=== PATIENT | female | born 1990 | race African-American/Black ===

== ENCOUNTER 2024-05-08 22:01 | Emergency (ER) | payer SELFPAY ==
[2024-05-08 22:04] VITALS: BP 124/90; PULSE 82; RESP 16; TEMP 36.4; O2SAT 100
[2024-05-08 22:15] LABS: BEDSIDEPREGUCG Negative (Negative)
[2024-05-08 22:56] LABS: Add Urine Microscopic? YES; Appearance Urine Turbid (Clear); Bacteria Urine 4+ /hpf; Bilirubin Urine Negative (Negative); Blood Urine 2+ (Negative); Budding Yeast Urine Present /hpf; Color Urine Yellow (Yellow); Glucose Urine UA Negative (Negative); Ketones Urine 1+ mg/dL (Negative); Leukocyte Esterase Ur 3+ LEU/UL (Negative); Nitrate Urine Negative (Negative); Non Pathogenic Casts >20; Protein Urine 4+ mg/dL (Negative); RBC Urine 51-100 /hpf (0-2); Specific Grav Ur 1.015 (1.001-1.035); Squamous Epithelial Cell Urine Moderate /hpf (Few); WBC Urine >100 /hpf (0-3); pH Urine 7.5 (5.0-9.0)
[2024-05-09] MEDS: KETOROLAC 30 MG/ML VIAL (*BKC) 15 MG IM (00:30)
[2024-05-09] MEDS: CEPHALEXIN 500 MG CAPSULE PO (00:30)
[2024-05-09] MEDS: PHENAZOPYRIDINE HCL 100 MG TABLET 200 MG PO (00:30)
[2024-05-09] MEDS: HYDROcodone/acetaminophen (*CRX) 7.5-325 MG TABLET 1 TAB PO (00:30)
--- NOTE | 2024-05-09 01:02 | ED.FEMALEGU ---
HPI - Female Genitourinary General Chief complaint: Urogenital-Female Stated complaint: pelvic pain, decreased urination Time Seen by Provider: 05/08/24 23:27 History of Present Illness HPI Narrative: Patient is a 33-year-old female who presents the emergency department this evening complaining of dysuria and suprapubic pain for the past 3 days. Patient denies any chance of , denies any abnormal vaginal bleeding Or spotting, denies any concern for STDs. Patient admits that she is not taking anything for the pain. Denies any fevers or chills at home, any nausea, vomiting, or abdominal pain. Patient states that she has been going to the bathroom but feels as though no matter how much she feels she not fully emptying her bladder. No additional symptoms or concerns at this time. Related Data Allergies Allergy/AdvReac Type Severity Reaction Status Date / Time No Known Allergies Allergy Verified 05/08/24 22:02 Review of Systems Review of Systems: All systems are reviewed and are negative unless stated otherwise in the HPI. Exam Narrative: General: Alert, awake, afebrile, in no acute distress. HEENT: PERRL, no rhinorrhea, no post nasal drip, oropharynx clear. Neck: Trachea midline, no JVD, no lymphadenopathy. Cardiovascular: Regular rate and rhythm, no murmurs, rubs or gallops, no peripheral edema. Respiratory: Clear to auscultation bilaterally, no tachypnea, no wheezing, no rhonchi, no rubs, no respiratory distress. Abdomen: Soft, nontender, nondistended, no rebound, no guarding, no peritoneal signs. Musculoskeletal: No joint swelling or deformity, normal muscle tone. Skin: No rashes or petechia, no signs of infection. Psychiatric: Alert and oriented, normal behavior and judgment for situation. Neurological: Alert and oriented to person, place, and time. Follows all commands. No focal deficits, speech is clear and fluent. Course Vital Signs Vital signs: Vital Signs Temperature 97.6 F 05/08/24 22:04 Pulse Rate 82 05/08/24 22:04 Respiratory Rate 16 05/08/24 22:04 Blood Pressure 124/90 05/08/24 22:04 Pulse Oximetry 100 05/08/24 22:04 Oxygen Delivery Room Air 05/08/24 22:04 Temperature 97.6 F 05/08/24 22:04 Pulse Rate 82 05/08/24 22:04 Respiratory Rate 16 05/08/24 22:04 Blood Pressure 124/90 05/08/24 22:04 Pulse Oximetry 100 05/08/24 22:04 Oxygen Delivery Room Air 05/08/24 22:04 MDM - Female Genitourinary MDM Narrative Medical decision making narrative: The patient was evaluated by myself in the emergency department. History is obtained from patient who is an independent historian and physical exam was performed. External medical records were reviewed at this time. Urinalysis did reveal urinary tract infection. Patient was administered 15 mg of IM Toradol, oral Page 5-325 mg, cephalexin 500 mg and 200 mg of oral Pyridium. Differential diagnosis considerations include UTI, pyelonephritis, dehydration. Comorbidities impacting this visit include none. I have evaluated and discussed social determinants of health with the patient that could potentially impact subsequent diagnosis and treatment plans. On repeat assessment of the patient, reevaluation revealed that the patient is doing well and is in no acute distress. Patient symptoms have improved since she arrived to our emergency department. Repeat vital signs were all reviewed and noted to be stable. Differential diagnosis and treatment plan were discussed with the patient at bedside. Patient agrees with discussion and after shared medical decision making agrees with discharge. All questions were answered to the patient's satisfaction. Patient will follow up with her PCP in 3-5 days. Script for peridium and cephalexin were sent to patient's pharmacy to take as prescribed for her UTI.Patient was provided with strict return precautions and instructed to return to the emergency department if any new or worsening symptoms develop. The patient was discharged in stable condition. Lab Data Labs: Lab Results 05/08/24 05/08/24 Range/Units 22:11 22:13 Urine Color Yellow (Yellow) Urine Appearance Turbid H (Clear) Urine pH 7.5 (5.0-9.0) Ur Specific [place] 1.015 (1.001-1.035) Urine Protein 4+ H (Negative) mg/dL Urine Glucose (UA) Negative (Negative) mg/dL Urine Ketones 1+ H (Negative) mg/dL Ur Blood (Man) 2+ H (Negative) Urine Nitrate Negative (Negative) Urine Bilirubin Negative (Negative) Urine Urobilinogen 1.0 (<2.0) mg/dL Leukocyte Esterase Rfl 3+ H (Negative) CARLENE/UL Urine RBC 51-100 H (0-2) /hpf Urine WBC >100 H (0-3) /hpf Ur Squamous Epith Cells Moderate (Few) /hpf Urine Bacteria 4+ /hpf Urine Casts >20 Urine Yeast (Budding) Present H (None) /hpf POC Urine HCG, Qual Negative (Negative) Discharge Plan Discharge Clinical Impression: Urinary tract infection Patient Disposition: Home, Self-Care Condition: Improved Instructions: Antibiotic Form, Urinary Tract Infection in Women (ED) Additional Instructions: Please follow-up with your family doctor within the next 3-5 days. Take the prescribed antibiotic as instructed for UTI. Use the Pyridium as instructed for 2 days to help with your dysuria. Return to the emergency department if any new or worsening symptoms develop. Patient Language: Malay Prescriptions: New cephalexin 500 mg capsule 500 mg PO Q12H 7 Days Qty: 14 0RF phenazopyridine [Pyridium] 200 mg tablet 200 mg PO TID Qty: 5 0RF Follow-up/Referrals: PHYSICIAN NOT ON STAFF,NONSTAFF [Primary Care Provider] - Jamin Sánchez MD [Physician] - 3 Days Time of Disposition: 01:04
[2024-05-09 01:06] VITALS: BP 115/98; PULSE 79; RESP 14; O2SAT 98
== END 2024-05-09 01:21 | disposition home or self-care (01) ==
PROVIDERS: Emergency Provider Emergency Medicine
DX: N39.0 Urinary tract infection, site not specified (principal)
CPT/HCPCS: 81001; 81025; 87086; 96372; 99283; A9270; J1885

== ENCOUNTER 2025-03-21 12:44 | Outpatient (CLI) | payer OTHER, SELFPAY ==
--- NOTE | ~2025-03-21 | US_ITS ---
EXAM(S): OB ultrasound follow-up HISTORY: Growth COMPARISON: Studies dating back to September 21 FINDINGS: Number: Single. Heart rate: 128 bpm. presentation: cephalic. anatomy: No anatomic abnormalities are seen on the static images submitted. Amniotic fluid index: 12.0 cm. Placenta: Fundal. Exam is performed too late in the gestation to evaluate the anatomy. Biometry: BPD: 9.4 cm. HC: 33.6 cm. AC: 33.3 cm. FL: 7.3 cm. These measurements indicate interval appropriate growth. Estimated Weight: 3221 grams. This is at the 60.2%. The estimated gestational age according to the first available ultrasound should currently be 37 weeks 3 days. Growth ratios (normal range): HC/AC: 1.01 (1.08 - 1.27) FL/BPD: 77.43 (71.0 - 87.0) FL/AC: 21.86 (20-24) The cervical length is 5.5 cm. IMPRESSION: 1. Single, live intrauterine showing interval appropriate growth. 2. No gross anomaly demonstrated with limitations noted above. 3. Fundal placenta. 4. The amniotic fluid volume is normal. Reviewed, dictated and finalized at location A. [facility]
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
== END 2025-03-21 12:45 | disposition home or self-care (01) ==
PROVIDERS: PCP Family Medicine; Visit Provider Student in an Organized Health Care Education/Training Program
DX: Z34.90 Encounter for supervision of normal pregnancy, unspecified, unspecified trimester (principal); Z3A.00 Weeks of gestation of pregnancy not specified
CPT/HCPCS: 76816

== ENCOUNTER 2025-04-03 04:54 | Inpatient (IN) | payer OTHER, SELFPAY ==
[2025-04-03] VITALS (86 sets, daily range): BP systolic 79–137; BP diastolic 54–91; PULSE 70–134; RESP 11–18; TEMP 36.4–36.8; O2SAT 98–100; BMI 30.3
--- NOTE | 2025-04-03 05:32 | LDADM ---
This patient, Sergio Oneal, was admitted to Labor/Delivery/Recovery 107 on 04/03/25 at 04:54. Plans for labor, pain management and were discussed with patient. Patient/family oriented to hospital policies and general routines including ID bracelet, bed and alarms, visiting hours, pain management, procedures, bathroom and other care routines, personal items, smoking policy, room service/diet and guest tray routines, infant security routines, and visiting hours. Patient/Family are encouraged to report perceived risks to care and to ask questions if they do not understand what they are told or what they should do. See OBIX for further documentation.
[2025-04-03 06:00] LABS: Hematocrit 31.0 % (37.0-47.0); Hemoglobin 10.7 g/dL (12.0-15.0); Immature Granulocyte Percent A 0.9 % (0-0.5); Lymphocytes Absolute Auto 1.41 K/mm3 (0.9-3.2); Mean Corpuscular HGB Conc 34.5 g/dl (32-36); Mean Corpuscular Hemoglobin 28.8 pg (26-34); Mean Corpuscular Volume 83.3 fl (80-100); Nucleated Red Blood Cells Absolute Auto 0.000 K/mm3 (0.0-0.012); Nucleated Red Blood Cells Perc 0.0 % (0.0-0.2); Platelet Count Result 259 k/mm3 (150-375); Red Blood Count 3.72 M/mm3 (4.2-5.4); White Blood Count 8.8 K/mm3 (4.5-10.0)
[2025-04-03 06:30] LABS: Syphilis IgG/IgM Antibody Non-Reactive (Nonreactive)
--- NOTE | 2025-04-03 06:43 | P.PNAN_ITS ---
Anes - Eval Pre Procedure Procedure: Labor epidural Date/Time: 04/03/25 06:43 Surgeon: Prakash Preop Diagnosis: Abdominal pain with contractions Pre Op Diagnosis: IOL Patient Data Age: 34 Gender: F Height: 1.78 m Weight: 96 kg Last Vital Signs Pulse 76 04/03/25 06:31 BP 123/77 04/03/25 06:31 Allergies Allergy/AdvReac Type Severity Reaction Status Date / Time No Known Allergies Allergy Verified 04/03/25 05:34 Home Medications ?Medication ?Instructions ?Recorded ?Confirmed ?Type nitrofurantoin 100 mg PO DAILY #60 caps 04/03/25 Rx monohydrate/macrocrystals 100 mg capsule (Macrobid) Laboratory Tests 04/03/25 05:26 WBC 8.8 K/mm3 (4.5-10.0) RBC 3.72 L M/mm3 (4.2-5.4) Hgb 10.7 L g/dL (12.0-15.0) Hct 31.0 L % (37.0-47.0) MCV 83.3 fl (80-100) MCH 28.8 pg (26-34) MCHC 34.5 g/dl (32-36) RDW 14.0 % (11.5-14.5) Plt Count 259 k/mm3 (150-375) MPV 10.7 H fl (7.4-10.4) Immature Gran % (Auto) 0.9 H % (0-0.5) Neut % (Auto) 73.6 H % (45.5-73.1) Lymph % (Auto) 16.0 L % (18.3-44.2) [place] % (Auto) 7.0 % (2.6-8.5) Eos % (Auto) 2.2 % (0-4.4) Baso % (Auto) 0.3 % (0.2-1.2) Lymph # (Auto) 1.41 K/mm3 (0.9-3.2) [place] # (Auto) 0.6 K/mm3 (0.1-0.6) Eos # (Auto) 0.2 K/mm3 (0-0.3) Baso # (Auto) 0.0 K/mm3 (0.0-0.1) Abs Immat Gran (auto) 0.08 H K/mm3 (0.00-0.031) Absolute Neuts (auto) 6.5 K/mm3 (1.3-6.7) Absolute Nucleated RBC 0.000 K/mm3 (0.0-0.012) Nucleated RBC % 0.0 % (0.0-0.2) Syphilis IgG/IgM Ab Non-reactive (Nonreactive) Blood Type AB Positive Antibody Screen Negative : gestational age HCG: positive Patient hx anesthesia problems: none Family hx anesthesia problems: none Results Review: All pre-operative results and documents have been reviewed as part of the pre- operative evaluation. [facility] Past Medical History Medical History Overweight (BMI 25.0-29.9) Eczema and not yet delivered Exposure to sexually transmitted disease (STD) Social History Social History Smoking status: Never smoker Second hand tobacco smoke exposure: No Alcohol intake: former Substance use: never Substance use type: does not use Do You Feel Safe in your Home?: Yes Lack of Transportation: No Lack of Food: Never True Current Housing: I Have Housing Concerned About Future Housing: No Difficulty Paying Gas/Electric Bills: No Difficulty Paying for Meds: No Currently Unemployed: No Education: High School Diploma/GED Difficulty w/ Childcare or Family Care: No Living arrangements: with family Occupation/Education: unemployed Gender identity (if verbalized by the patient): Female Sexual Orientation (if Verbalized by the Patient): Straight or Heterosexual Spiritual care concerns: No Exam Day of Procedure 04/03/25 06:43 Patient weight: overweight
[2025-04-03 08:28] LABS: HIV 1/2 Ab P24 Ag Result Negative (Negative)
[2025-04-03 09:02] LABS: Hepatitis B Surface Antigen Negative (Negative)
--- NOTE | 2025-04-03 13:33 | PM.IMHP ---
H&P: HPI History of Present Illness Date/Time: 04/03/25 13:33 Chief Complaint: Intrauterine at term Narrative: 34 yo at 39w2d who presents for elective IOL. Review of Systems Cardiovascular: Cardiovascular: Denies chest pain, Denies leg edema, Denies palpitations, Denies dyspnea and Denies dyspnea on exertion Respiratory: Respiratory: Denies cough, Denies dyspnea and Denies dyspnea on exertion Gastrointestinal: Gastrointestinal: Denies abdominal pain, Denies constipation, Denies diarrhea, Denies nausea and Denies vomiting Genitourinary: Genitourinary: Denies hematuria, Denies urinary frequency, Denies dysuria, Denies pelvic pain, Denies urinary incontinence and Denies vaginal discharge Neurologic: Reports system reviewed and no additional complaints, except as documented Psychiatric: Psychiatric: Reports no additional psychiatric complaints Endocrine: Endocrine: Denies palpitations PMFSH Past Medical History Medical History Overweight (BMI 25.0-29.9) Eczema and not yet delivered Exposure to sexually transmitted disease (STD) Social History Social History Smoking status: Never smoker Second hand tobacco smoke exposure: No Alcohol intake: former Substance use: never Substance use type: does not use Do You Feel Safe in your Home?: Yes Lack of Transportation: No Lack of Food: Never True Current Housing: I Have Housing Concerned About Future Housing: No Difficulty Paying Gas/Electric Bills: No Difficulty Paying for Meds: No Currently Unemployed: No Education: High School Diploma/GED Difficulty w/ Childcare or Family Care: No Living arrangements: with family Occupation/Education: unemployed Gender identity (if verbalized by the patient): Female Sexual Orientation (if Verbalized by the Patient): Straight or Heterosexual Spiritual care concerns: No Meds Home Medications and Allergies Home Medications ?Medication ?Instructions ?Recorded ?Confirmed ?Type nitrofurantoin 100 mg PO DAILY #60 caps 03/16/25 04/03/25 Rx monohydrate/macrocrystals 100 mg capsule (Macrobid) Allergies Allergy/AdvReac Type Severity Reaction Status Date / Time No Known Allergies Allergy Verified 04/03/25 05:34 Vital Signs Vital Signs - 24 hr 04/03/25 05:14 04/03/25 05:31 04/03/25 05:46 Temperature Pulse Rate 93 90 90 Blood Pressure 115/76 109/71 110/76 Oxygen Delivery 04/03/25 06:01 04/03/25 06:15 04/03/25 06:16 Temperature 98 F Pulse Rate 88 89 Blood Pressure 107/70 111/77 Oxygen Delivery 04/03/25 06:31 04/03/25 06:45 04/03/25 06:46 Temperature Pulse Rate 76 88 Blood Pressure 123/77 119/64 Oxygen Delivery Room Air 04/03/25 07:01 04/03/25 07:16 04/03/25 07:31 Temperature Pulse Rate 86 82 78 Blood Pressure 118/84 124/87 117/81 Oxygen Delivery 04/03/25 07:46 04/03/25 08:01 04/03/25 08:16 Temperature Pulse Rate 81 81 85 Blood Pressure 113/76 101/56 L 96/60 L Oxygen Delivery 04/03/25 08:31 04/03/25 08:46 04/03/25 09:01 Temperature Pulse Rate 93 86 88 Blood Pressure 94/76 L 113/81 111/84 Oxygen Delivery 04/03/25 09:16 04/03/25 09:31 04/03/25 09:46 Temperature Pulse Rate 87 91 91 Blood Pressure 113/79 109/77 108/71 Oxygen Delivery 04/03/25 10:01 04/03/25 10:16 04/03/25 10:31 Temperature Pulse Rate 91 89 85 Blood Pressure 101/84 112/76 117/76 Oxygen Delivery 04/03/25 10:46 04/03/25 11:01 04/03/25 11:16 Temperature Pulse Rate 91 97 86 Blood Pressure 109/83 115/81 112/79 Oxygen Delivery 04/03/25 11:31 04/03/25 11:46 04/03/25 12:01 Temperature Pulse Rate 88 91 96 Blood Pressure 108/72 111/77 105/64 Oxygen Delivery 04/03/25 12:16 04/03/25 12:31 04/03/25 12:46 Temperature Pulse Rate 77 83 77 Blood Pressure 117/74 118/80 106/65 Oxygen Delivery 04/03/25 13:01 04/03/25 13:16 04/03/25 13:31 Temperature Pulse Rate 86 81 83 Blood Pressure 102/64 116/78 115/71 Oxygen Delivery Exam Const: General: no acute distress Eyes: EOM: EOMs intact bilaterally Neck: Neck: supple Thyroid: thyroid normal Chest: Breast/axilla inspection: normal inspection of the breasts Breast/axilla palpation: normal palpation of the breasts, normal palpation of the axillae and no axillary lymphadenopathy Resp: Effort & Inspection: normal respiratory effort Auscultation: clear to auscultation bilaterally Cardio: Rate: regular rate Rhythm: regular rhythm GI: Inspection: non-distended and other (Gravid) GI Palp: Yes Soft to palpation, No Tenderness to palpation present (GI) and No Guarding due to palpation present (GI) Auscultation: normal bowel sounds : Speculum Exam - Vagina: No vaginal bleeding OB/external & speculum: external exam normal; No vaginal bleeding Skin: General skin exam: normal color and no rashes or lesions noted Neuro: Cognition (Neuro): normal cognition Speech: normal speech Extrem: General: normal to inspection Psych: Mental Status: mental status grossly normal Affect: normal affect H&P: Results Labs Labs: Short CBC 04/03/25 Range/Units 05:26 WBC 8.8 (4.5-10.0) K/mm3 Hgb 10.7 L (12.0-15.0) g/dL Hct 31.0 L (37.0-47.0) % Plt Count 259 (150-375) k/mm3 Assessment and Plan Assessment and plan (1) : Code(s): Z34.90 - Encounter for supervision of normal , unspecified, unspecified trimester Status: Acute Assessment and Plan: 34 yo who presents for elective IOL at 39w admit to L&D routine admission orders Rh+ GBS neg plan for misoprostol IOL continuous EFM epidural PRN
--- NOTE | 2025-04-03 18:24 | PM.OBPNLAB ---
Pain Control Date/time seen: 04/03/25 18:24 Pain control: tolerating well Pelvic Exam Dilation (cm): 0 station: -4 Amniotic membrane status: Intact Contractions Monitor mode: External Status status: Category ll Assessment and Plan Plan: Comments: Patient is status post 2 rounds of Cytotec without cervical change. station noted to be high. Concern for possible malpresentation. Bedside ultrasound was performed and confirmed breech presentation. Patients most recent US on 03/21/25 showed cephalic presentation. Recommended proceeding with primary for malpresentation. Risks, benefits, alternatives reviewed patient consented to proceed with primary .
[2025-04-03] MEDS: FAMOTIDINE 20 MG/2 ML VIAL IV PUSH (18:32)
[2025-04-03] MEDS: ONDANSETRON INJ 4 MG/2 ML VIAL IV PUSH (18:32)
[2025-04-03] MEDS: ACETAMINOPHEN 500 MG TABLET 1000 MG PO ×2 (18:32→23:50)
[2025-04-03] MEDS: ceFAZolin 2 GM in SODIUM CHLORIDE 0.9% IV 50 ML 100 ML IVPB (18:46)
[2025-04-03] MEDS: AZITHROMYCIN IV 500 MG in SODIUM CHLORIDE 0.9% IV 250 ML IVPB (18:46)
--- NOTE | 2025-04-03 19:42 | W.PM.OBCSD ---
OB - Delivery Note Procedure Delivery date: 04/03/25 Pre-op diagnosis: Breech Presentation Post-op Diagnosis: Same Induction method: Per Misoprostol Protocol Delivery monitor: External FHT and External Uterine Prior to decision for section, ACOG/SMFM labor guidelines were considered and discussed with the patient and staff. Decision made to proceed with the section.: Yes Procedure Performed: Primary Primary branch: low cervical, transverse Surgeon: Freddie Randall MD Anesthesia type: Spinal Description of Procedure/Findings: The patient was taken to the operating room. A combined spinal epidural anesthesic was administered and found to be adequate at a t-10 level. The patient was placed in a supine position with a slight left lateral tilt. A magaña catheter was placed with return of clear urine. A Bovie grounding pad was placed. Surgical prep was performed and surgical drapes were placed. A surgical time out was performed. A Pfannenstiel skin incision was then made with the scalpel and carried through to the underlying layer of fascia. The fascia was then incised in the midline and the incision was extended laterally with the Heath scissors. The superior aspect of the fascia was then grasped with the Manjit clamps, elevated, and the underlying rectus muscles dissected off bluntly and sharply. Attention was then turned to the inferior aspect of this incision which, in a similar fashion, was grasped, tented up with the Manjit clamps, and the rectus muscles dissected off both bluntly and sharply. The rectus muscles were then in the midline. The peritoneum was identified and entered bluntly. The peritoneal incision was then extended superiorly and inferiorly with good visualization of the bladder. The vesico-uterine serosa was identified and dissected to create a bladder flap. A ring retractor was placed for better visualization. The uterus was inspected for rotation. A low-transverse uterine incision was made sharply with the scalpel and entry was made into the uterine cavity. An amniotomy was made and copious amounts of meconium stained fluid was noted on return. The uterine incision was extended laterally bluntly. At the time of hysterotomy, it was felt that the head had moved to transverse lie, maternal right. The head was then guided to the hysterotomy. The head was delivered through the hysterotomy. A lose nuchal x 1 was noted and reduced. The remainder of the fetus was delivered atraumatically. The nose and mouth were suctioned with a bulb syringe. The umbilical cord was clamped twice and cut. The infant was handed off to the waiting staff. At the time of the delivery, the had good color, tone and grimace. The infant cried with minimal stimulation. A second segment of umbilical cord was clamped and cut for cord blood gasses. Cord blood was collected for determination of the blood type and for direct Dominguez. The placenta was delivered spontaneously without difficulty. The placenta appeared grossly normal and complete. The uterus was exteriorized and cleared of all clots and debris. The uterine incision was repaired using 0-monocryl suture in a running fashion. The uterine closure was inspected for hemostasis. Hemaderm powder was placed on the hysterotomy. The posterior aspect of the uterus and the broad ligaments were inspected and the posterior cul-de-sac cleared of fluid and blood clots. The uterine closure was again inspected and found to be hemostatic. The uterus was returned to the abdominal cavity. The pericolic gutters were inspected and were cleared of all blood clots and debris. The uterine closure was then re inspected to ensure hemostasis as were all subfascial tissues. The peritoneum was closed using 3-0 vicryl in a running fashion. The fascia was reapproximated with 0-vicryl in a running fashion. The subcutaneous tissue was irrigated and hemostasis achieved with electrocautery. The skin was closed with 4-0 vicryl in a subcuticular fashion. A sterile dressing was applied to the wound. The patient tolerated the procedure well. Sponge, lap and needle counts were correct times three. The patient was taken to recovery in stable condition and without anticipated complications. Specimen: No Estimated Blood Loss: 965 Drains: No Packing: No Pathology: None sent Complications: No immediate complications Condition: Stable Disposition: Floor [place] Baby Date of : 04/03/25 Gestational Age by Date: 39 gender: Male presentation: transverse position: Transverse ( head maternal right) Placenta delivery description: Manual Removal Cord Vessel Description: 3 Vessels and Nuchal Cord
[2025-04-03] MEDS: OXYTOCIN 30 UNITS/NS 500 ML 30 UNITS/500 ML BAG 125 UNITS IV CONT (20:49)
[2025-04-03] MEDS: KETOROLAC 15 MG/ML VIAL (*BKC) IV PUSH (21:16)
--- NOTE | 2025-04-03 22:13 | OBPPTRN ---
Patient transferred to post room #288 via stretcher. Oriented to unit, room, information board, rooming in, admission packet and security measures. Patient verbalizes understanding.
[2025-04-03] MEDS: LIDOCAINE 5% PATCH 1 PATCH TRANSDERM (23:50)
[2025-04-04] MEDS: DEXTROSE 5%/0.45% SOD CHL 1,000 ML 125 ML IV CONT (01:00)
[2025-04-04 03:40] VITALS: BP 96/64; PULSE 97; RESP 16; TEMP 36.9; O2SAT 97
[2025-04-04] MEDS: KETOROLAC 15 MG/ML VIAL (*BKC) IV PUSH ×3 (03:40→17:20)
[2025-04-04 04:54] LABS: Hematocrit 26.4 % (37.0-47.0); Hemoglobin 8.8 g/dL (12.0-15.0); Immature Granulocyte Percent A 0.7 % (0-0.5); Lymphocytes Absolute Auto 1.09 K/mm3 (0.9-3.2); Mean Corpuscular HGB Conc 33.3 g/dl (32-36); Mean Corpuscular Hemoglobin 28.3 pg (26-34); Mean Corpuscular Volume 84.9 fl (80-100); Nucleated Red Blood Cells Absolute Auto 0.000 K/mm3 (0.0-0.012); Nucleated Red Blood Cells Perc 0.0 % (0.0-0.2); Platelet Count Result 208 k/mm3 (150-375); Red Blood Count 3.11 M/mm3 (4.2-5.4); White Blood Count 10.6 K/mm3 (4.5-10.0)
[2025-04-04] MEDS: ACETAMINOPHEN 500 MG TABLET 1000 MG PO ×4 (05:34→21:11)
[2025-04-04 08:15] VITALS: BP 101/65; PULSE 79; RESP 16; TEMP 37.2; O2SAT 100
--- NOTE | 2025-04-04 09:13 | PM.OBPNVD ---
OB - PN: Subj Subjective Date/time seen: 04/04/25 09:13 Interval history: patient is emotional this morning as her son is being transferred due to pneumothorax. Patient comments: no complaints, pain well controlled, tolerating diet and flatus present OB - PN: Obj Data Labs 04/04/25 03:58 Labs: Laboratory Results - last 24 hr 04/04/25 03:58 WBC 10.6 H RBC 3.11 L Hgb 8.8 L Hct 26.4 L MCV 84.9 MCH 28.3 MCHC 33.3 RDW 14.1 Plt Count 208 MPV 11.0 H Immature Gran % (Auto) 0.7 H Neut % (Auto) 82.1 H Lymph % (Auto) 10.3 L Rawlins % (Auto) 5.9 Eos % (Auto) 0.6 Baso % (Auto) 0.4 Lymph # (Auto) 1.09 Rawlins # (Auto) 0.6 Eos # (Auto) 0.1 Baso # (Auto) 0.0 Abs Immat Gran (auto) 0.07 H Absolute Neuts (auto) 8.7 H Absolute Nucleated RBC 0.000 Nucleated RBC % 0.0 OB - PN A/P Plan day: 1 Plan: routine care Comments: patient doing well H/H 8.01/10, asymptomatic afebrile, VSS incision C/D/I will remove magaña, recommend strict I&O's will continue daily macrobid continue routine post op care Time Spent With Patient Time: Total time spent is greater than 50% in coordination of care (as documented) at patient's floor/unit and/or counseling patient: Time with patient: less than 15 minutes Review of Systems Constitutional: Constitutional: Reports no additional constitutional complaints Cardiovascular: Cardiovascular: Reports no additional cardiovascular complaints Respiratory: Respiratory: Reports no additional respiratory complaints Gastrointestinal: Gastrointestinal: Reports no additional gastrointestinal complaints Genitourinary: Genitourinary: Reports no additional female genitourinary complaints Exam Const: General: comfortable and no acute distress Resp: Effort & Inspection: normal respiratory effort Auscultation: clear to auscultation bilaterally Cardio: Rate: regular rate GI: GI Palp: Yes Soft to palpation, Yes Tenderness to palpation present (GI) (around incision ) and No Guarding due to palpation present (GI) Auscultation: normal bowel sounds Other: incision C/D/I, covered with Dermabond Psych: Appearance: grossly normal Mental Status: mental status grossly normal Affect: normal affect
[2025-04-04] MEDS: SIMETHICONE 80 MG TAB.CHEW PO ×2 (10:44→17:20)
[2025-04-04] MEDS: MULTIVIT/MIN/PREN/FOL AC/IRON TABLET 1 TAB PO (10:45)
[2025-04-04] MEDS: NITROFURANTOIN MONOHYD MACROCR 100 MG CAP PO (10:45)
[2025-04-04] MEDS: DOCUSATE SODIUM 100 MG CAPSULE PO ×2 (10:45→17:20)
[2025-04-04 12:06] VITALS: BP 105/72; PULSE 89; RESP 16; TEMP 37.3; O2SAT 100
--- NOTE | 2025-04-04 15:33 | PC.NURSE ---
1042 Introductions were made, then consulted with patient to assess needs related to . A breast pump was provided last night from Primary RN due to being in level II nursery and infant is now being transferred to another hospital this morning. Instructions were given on cleaning, care, usage, that there should be no pain, pumping schedule for milk production, collection, and storage of human milk. Patient needs to be assessed for correct placement and her flange size, was advised to call out with her next pumping session. She was advised to pump for comfort and nipple stretching/stimulation for adequate milk production every 3 hours (8 times in 24 hours) 1-2 times at night. Parents are encouraged to record the pumping schedule on the feeding sheet.?Mother voiced understanding of the education shared along with mom/baby guide and the pump measurement, flange fit handout for additional resource information. Reported to the Primary RN. 1300 CLC RN checked in with mother and she was taking a shower, advised to call when ready to use the breast pump. 1528 CLC RN checked in with mother, she is now sleeping, dropped off basin, soap and bottle brush for breast pump cleaning. Advised Primary RN that mother needs flange size assessed.
--- NOTE | 2025-04-04 17:45 | PC.NURSE ---
Bladder scan used. 267 ml noted to be in bladder via scan. Pt denies sensation to void or the feeling of a full bladder.
--- NOTE | 2025-04-04 18:10 | WPDANLDPN2 ---
Anes-Prog Note L&D Date/Time: 04/04/25 18:10 Comfortable throughout: section Neuraxial method: spinal Epidural/Spinal procedure site: clean & non-tender Neuro status: Neuro function grossly intact. Cardiovascular status: normal Respiratory status: normal Airway patency: baseline Mental status: baseline Post-Op hydration status: normal Vital Signs: Last Vital Signs Temp 99.2 F 04/04/25 12:06 Pulse 89 04/04/25 12:06 Resp 16 04/04/25 12:06 BP 105/72 04/04/25 12:06 Pulse Ox 100 04/04/25 12:06 O2 Del Method Room Air 04/03/25 22:25 Pain score (VAS): 0/10 I/O: Intake & Output 04/04/25 04/04/25 04/04/25 07:59 15:59 23:59 Output Total 400 350 Balance -400 -350 Post-procedural complaints: none Patient feedback: Patient satisfied with anesthetic care.
--- NOTE | 2025-04-04 18:11 | WPDANLDNPN2 ---
Anes-Prog Note L&D-Neuraxial Date/Time: 04/04/25 18:11 Neuraxial medications: intrathecal PF morphine Opiod-related complaints: none Patient feedback: Patient satisfied with post-operative pain management.
[2025-04-04 20:42] VITALS: BP 102/62; PULSE 94; RESP 18; TEMP 37; O2SAT 98
[2025-04-04] MEDS: IBUPROFEN 600 MG TABLET PO (21:11)
[2025-04-05] MEDS: IBUPROFEN 600 MG TABLET PO ×2 (03:37→09:45)
[2025-04-05] MEDS: oxyCODONE HCL (*CRX) 5 MG TAB IR 10 MG PO (03:37)
[2025-04-05] MEDS: ACETAMINOPHEN 500 MG TABLET 1000 MG PO ×2 (03:37→09:46)
[2025-04-05 07:25] VITALS: BP 102/69; PULSE 88; RESP 18; TEMP 36.9; O2SAT 100
--- NOTE | 2025-04-05 09:35 | P.DS_ITS ---
DS: Admitting Diagnosis Discharge Date 04/05/25 Admitting Diagnosis intrauterine at term malpresentation urinary retention DS: Discharge Diagnosis Discharge Diagnosis (1) delivery delivered: Code(s): O82 - Encounter for delivery without indication Status: Acute OB - DS: Summary OB Procedures : None OB Procedures Intrapartum: OB Procedures: : None Peripartum Data Infant Delivery Method: Section Procedures: Procedures Operation Date: 04/03/25 18:20 Actual Procedure Side Surgeon p Section Not Applicable Freddie Randall MD complications: none Status at Discharge Functional status at discharge: independent ambulation Overall status at discharge: patient is progressing back to baseline Time Spent with Patient Time attestation: Total time spent providing and/or coordinating discharge services: Time spent: Less than 30 minutes Exam Const: General: comfortable and no acute distress Resp: Effort & Inspection: normal respiratory effort Auscultation: clear to auscultation bilaterally Cardio: Rate: regular rate GI: Inspection: non-distended GI Palp: Yes Soft to palpation, No Firmness t o palpation present (GI), Yes Tenderness to palpation present (GI) (mild tenderness over incision ) and No Guarding due to palpation present (GI) Auscultation: normal bowel sounds Psych: Appearance: grossly normal Mental Status: mental status grossly normal Discharge Plan Discharge Discharging Clinician: Freddie Randall Patient Disposition: Home Activity: as tolerated and pelvic rest Diet: regular Patient Instructions: Antibiotic Form, (DC) Patient Language: Mohawk Stand Alone Forms: General Discharge Information Follow-up/Referrals: Freddie Randall MD [Physician, PLASTIC PROCESS TECHNICIAN] Discharge Medications: New oxycodone-acetaminophen 5-325 mg tablet 1 tablet PO Q6H PRN (Reason: pain) Qty: 28 0RF cephalexin 500 mg capsule 500 mg PO DAILY Qty: 90 0RF ibuprofen 600 mg tablet 600 mg PO Q6H PRN (Reason: pain) Qty: 30 0RF Discontinued nitrofurantoin monohyd/m-cryst [Macrobid] 100 mg capsule 100 mg PO DAILY Qty: 60 0RF Rx Instructions: must administer with a meal/food Date of admission: 04/03/25 04:54 Primary Care Provider: UNKNOWN,DOCTOR Admitting Provider: Freddie Randall Attending physician on admission: Freddie Randall Condition: Stable
[2025-04-05] MEDS: SIMETHICONE 80 MG TAB.CHEW PO (09:45)
[2025-04-05] MEDS: MULTIVIT/MIN/PREN/FOL AC/IRON TABLET 1 TAB PO (09:46)
[2025-04-05] MEDS: DOCUSATE SODIUM 100 MG CAPSULE PO (09:46)
[2025-04-05] MEDS: NITROFURANTOIN MONOHYD MACROCR 100 MG CAP PO (09:46)
--- NOTE | 2025-04-05 12:20 | PC.NURSE ---
Consulted with mother concerning needs and she shared that she does still need to be properly measured for the breast pump flanges. CLC RN measured her nipples at 23mm, she was given the size 27 flanges as well as the size 30 if she needs to size up if there is any rubbing of her nipple on the flange. Reinforced understanding of milk production, transition of milk, signs of adequate intake, transition of stool, prevention/relief of engorgement, plugged ducts, mastitis, responsive watching for feeding cues, community resources, and when to call a provider using the resource of the feeding sheet along with the mom and baby guide. Mother voiced understanding of the information shared, is confident to continue effectively use her breast pump at home, when to call for assistance, denies any additional assistance or education at this time. Reported to the Primary RN.
[2025-04-05 12:26] VITALS: BP 114/81; PULSE 92; RESP 16; TEMP 36.8; O2SAT 100
--- NOTE | 2025-04-06 11:23 | WPDHPUPDATE1 ---
History and Physical Update Update Date/Time: 04/06/25 11:23 History and Physical has been reviewed, including an updated exam of the patient. There are NO changes in the patient's condition. Risks, benefits, and alternatives have been discussed and questions answered. Patient agrees to proceed with procedure.
== END 2025-04-05 14:49 | disposition home or self-care (01) | DRG 540 ==
LOC: ANHLDR 05:04 → ANHOB2 22:40
PROVIDERS: Admitting Provider Student in an Organized Health Care Education/Training Program; Visit Provider Student in an Organized Health Care Education/Training Program
PROC: 10D00Z1 Extraction of Products of Conception, Low, Open Approach (ICD-10-PCS; CPT 59514; principal; 2025-04-03 18:20)
DX: O32.2XX0 Maternal care for transverse and oblique lie, not applicable or unspecified (principal); Z37.0 Single live birth; Z3A.39 39 weeks gestation of pregnancy; O77.0 Labor and delivery complicated by meconium in amniotic fluid
CPT/HCPCS: 36415; 85025; 86593; 86703; 86762; 86850; 86900; 86901; 87340; J0690; A9270; G0432; J0456; J1885; J2274; J2371; J2405; J2590; J7050